=== PATIENT | female | born 1995 | race Asian ===

== ENCOUNTER 2023-12-07 11:37 | Observation (INO) ==
[~2023-12-07 11:37] MED LIST: Lidocaine 2% PF 5 ML VIAL ONE; Metoclopramide 5 MG/ML VIAL (10 mg) IV PRN; Midazolam 2 mg/2 ml VIAL 1 mg/ml 2 ml VIAL (2 mg) ONE; NS 0.45% 1000 ml BAG 1,000 ML IV SCH; Naloxone 0.4 mg VIAL 0.4 mg/ml 1 ml VIAL IV PRN; Ondansetron 4 mg VIAL 2 MG/ML 2 ml VIAL IV PRN; Propofol 10 MG/ML 20 ML BTL ONE; Rocuronium 50 mg VIAL 10 mg/ml 5 ml VIAL (50 mg) ONE; fentaNYL 100 mcg/2 ml 50 MCG/ML VIAL ONE
[2023-12-07] MEDS: Buffered Lidocaine 1% SYRIN 1 ml INTRADERM ONE (11:45)
[2023-12-07] MEDS: Lactated Ringers 1000 ml BAG 1,000 ML IV SCH (12:29)
[2023-12-07 12:30] LABS: Rapid COVID-19 Molecular Undetected (Undetected)
[2023-12-07] MEDS ORDERED: Phenylephrine 40 mcg/mL 10mL (400mcg) SYRINGE ONE (14:31)
[2023-12-07] MEDS ORDERED: fentaNYL 100 mcg/2 ml 50 MCG/ML VIAL ONE ×3 (14:33→17:24)
[2023-12-07] MEDS ORDERED: Propofol 10 MG/ML 20 ML BTL ONE (14:40)
[2023-12-07] MEDS ORDERED: Propofol 10 mg/ml 100 ML BTL 1,000 MG/100 ML BTL ONE (14:41)
[2023-12-07] MEDS ORDERED: Phenylephrine IV 10 MG/ML 1 ml VIAL ONE (14:47)
[2023-12-07] MEDS: fentaNYL 100 mcg/2 ml 50 MCG/ML VIAL IV PRN (17:29)
[2023-12-07] MEDS: Acetaminophen IV 1 GM/100ML 1,000 MG/100 ML BAG IV ONE (21:40)
[2023-12-07] MEDS: Calcium Carb (TUMS) 500 mg CHEW TAB PO SCH (21:41)
[2023-12-08 10:39] VITALS: BP 105/73
== END 2023-12-08 11:13 | disposition home or self-care (01) ==
LOC: SSU 11:37 → OR 11:37
PROVIDERS: ADMIT Otolaryngology; ATTEND Hospitalist